=== PATIENT | male | born 1930 | race Caucasian/White ===

== ENCOUNTER 2017-01-06 12:08 | Emergency (ER) | payer OTHER, BC ==
--- NOTE | 2017-01-06 12:12 | EDPHY ---
HPI/HX/ROS/PE/MDM Narrative: CHIEF COMPLAINT: Fall, head trauma HPI: This patient is an anticoagulated 86-year-old male who presents to the Emergency Department via EMS with trauma to his right parietal scalp secondary to a fall while walking just prior to arrival. He reports that he felt acutely lightheaded prior to falling; he states that he often feels lightheaded but this was his first collapse. It is unclear if he lost consciousness. At time of arrival, he complains of a generalized headache. He denies any additional complaints. 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 REVIEW OF SYSTEMS: Aside from elements discussed in the HPI, a comprehensive 10-point review of systems was reviewed and is negative. PMH: 1. AV sequential pacemaker 2. CVA x2 (Eliquis) SOCIAL HISTORY: . Lives in [place]. PHYSICAL EXAM: General:Patient is alert, in no acute distress. ENT:Eyes are normal to inspection. ENT inspection normal. Neck: Normal inspection. Full range of motion. Respiratory:No respiratory distress. Breath sounds normal bilaterally. Cardiovascular: Regular rate and rhythm. Strong peripheral pulses. Normal cap refill. Abdomen:The abdomen is nontender to palpation. There are no peritoneal signs. There are normal bowel sounds. Back: Normal to inspection. No tenderness to palpation. Skin: Normal color. No rash. Warm and dry. Abrasion to the right hip and left forearm. Extremities: Normal appearance. Full range of motion. Neuro: Oriented x3. Normal motor function. Normal sensory function. ED Course: 1210: Took EMS report at bedside. 86-year-old male with history of a fib on Eliquis with cardiac pacemaker and two recent CVAs presents via EMS secondary to what appears to be a syncopal collapse with reported trauma to his right parietal scalp. On exam, his head is atraumatic. He has two small superficial abrasions to his extremities but full ROM to all extremities. There are no acute neurological deficits. He is mildly hypertensive but all other vital signs are normal. Will proceed with CT of the head, labs, and EKG. EKG, ordered and interpreted by myself, is normal. Please see [facility] system for official reading. Labs obtained and are unremarkable. 1310: CT of the head is non-acute per Dr. Mukherjee, radiology. I discussed results with the patient. He is feeling comfortable now and is able to ambulate around the department without recurrence of lightheadedness. However , he now complains of rib pain. Will proceed with x-ray of the chest. 1445: Chest x-ray reviewed and is negative for acute rib fracture. I discussed these results with the patient. He will be discharged home with instructions to follow-up with his neurologist and customary return precautions. - Data Points Imaging Results: Imaging Impressions Head CT 01/06/17 12:15 Impression: 1. No acute fracture, subdural hematoma, or acute intracranial hemorrhage. 2. 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 Findings discussed with emergency department physician, Gutierrez Dawson MD on January 06, 2017 at 1:12 p.m. Laboratory Results: Laboratory Results 01/06/17 12:15 01/06/17 12:15 01/06/17 01/06/17 01/06/17 12:15 12:15 12:15 WBC 7.49 10^3/uL 10^3/uL (3.80-9.50) RBC 4.23 10^6/uL L 10^6/uL (4.40-6.38) Hgb 13.5 g/dL L g/dL (13.7-17.5) Hct 41.1 % % (40.0-51.0) MCV 97.2 fL fL (81.5-99.8) MCH 31.9 pg pg (27.9-34.1) MCHC 32.8 g/dL g/dL (32.4-36.7) RDW 13.6 % % (11.5-15.2) Plt Count 177 10^3/uL 10^3/uL (150-400) MPV 11.1 fL fL (8.7-11.7) Neut % (Auto) 47.4 % % (39.3-74.2) Lymph % (Auto) 38.9 % % (15.0-45.0) [place] % (Auto) 10.1 % % (4.5-13.0) Eos % (Auto) 2.7 % % (0.6-7.6) Baso % (Auto) 0.5 % % (0.3-1.7) Nucleat RBC Rel Count 0.0 % % (0.0-0.2) Absolute Neuts (auto) 3.55 10^3/uL 10^3/uL (1.70-6.50) Absolute Lymphs (auto) 2.91 10^3/uL 10^3/uL (1.00-3.00) Absolute Monos (auto) 0.76 10^3/uL 10^3/uL (0.30-0.80) Absolute Eos (auto) 0.20 10^3/uL 10^3/uL (0.03-0.40) Absolute Basos (auto) 0.04 10^3/uL 10^3/uL (0.02-0.10) Absolute Nucleated RBC 0.00 10^3/uL 10^3/uL (0-0.01) Immature Gran % 0.4 % % (0.0-1.1) Immature Gran # 0.03 10^3/uL 10^3/uL (0.00-0.10) PT 13.5 SEC SEC (12.0-15.0) INR 1.04 (0.83-1.16) APTT 29.0 SEC SEC (23.0-38.0) Sodium 144 mEq/L mEq/L (134-144) Potassium 4.8 mEq/L mEq/L (3.5-5.2) Chloride 107 mEq/L mEq/L (97-110) Carbon Dioxide 24 mEq/l mEq/l (22-31) Anion Gap 13 mEq/L mEq/L (8-16) BUN 25 mg/dL H mg/dL (7-23) Creatinine 1.0 mg/dL mg/dL (0.7-1.3) Estimated GFR > 60 Glucose 98 mg/dL mg/dL (70-100) Calcium 9.4 mg/dL mg/dL (8.5-10.4) Troponin I < 0.012 ng/mL ng/mL (0-0.034) General Time Seen by Provider: 01/06/17 12:09 Initial Vital Signs: Initial Vital Signs Heart Rate 74 01/06/17 12:19 Respiratory Rate 16 01/06/17 12:19 Blood Pressure 156/92 H 01/06/17 12:19 O2 Sat (%) 94 01/06/17 12:19 O2 Delivery Mode Room Air Allergies/Adverse Reactions: No Known Drug Allergies Allergy (Verified 12/02/14 11:36) Home Medications: Medication Instructions Recorded Dutasteride [Avodart 0.5 MG (*)] 0.5 mg PO HS 01/25/12 Cetirizine [ZyrTEC 10 mg (*)] 10 mg PO DAILY 03/01/13 Fluticasone Nasal [Flonase Nasal 2 sprays EACHNARE DAILY 03/01/13 [place]] Cholecalciferol Vit D3 [Vitamin D3 1,000 units PO DAILY 11/23/14 (*)] Levothyroxine [Synthroid 125 mcg 125 mcg PO DAILY 11/23/14 (*)] Vitamin B Complex [B Complex] 1 tab PO DAILY 11/23/14 Apixaban [Eliquis] 5 mg PO BID #60 tab 11/24/14 Midodrine HCl [Proamatine/Midodrin] 2.5 mg PO TID@0800,1200,1600 #90 02/03/15 tab Acetaminophen/Diphenhydramine 2 tab PO HS 03/19/16 [Pain Relief Pm Caplet] Atorvastatin Calcium 80 mg PO HS 03/19/16 Docusate Sodium [Colace 100 MG (*)] 200 mg PO HS 03/19/16 Metoprolol Tartrate [Lopressor 25 12.5 mg PO BID #60 tab 03/23/16 mg (*)] Departure - Departure Disposition: Home, Routine, Self-Care Clinical Impression: Fall Qualifiers: Encounter type: initial encounter Qualified Code(s): W19.XXXA - Unspecified fall, initial encounter Rib contusion Qualifiers: Encounter type: initial encounter Laterality: unspecified laterality Qualified Code(s): S20.219A - Contusion of unspecified front wall of thorax, initial encounter Condition: Good Instructions: Fall Prevention for Older Adults (ED), Rib Contusion (ED) Additional Instructions: 1. Follow-up with your neurologist in the next 3-5 days for reevaluation. 2. Return to the Emergency Department if you experience severe headache, confusion, vision or speech changes, weakness, or for other serious concerns. Referrals: Marcello Hess DO [Doctor of Osteopathy] - As per Instructions Report Scribed for: Gutierrez Dawson Report Scribed by: Latonya Mccain Date of Report: 01/06/17 Time of Report: 12:12 Physician Review and Approval Statement: Portions of this note were transcribed by an ED scribe. I personally performed the history, physical exam, and medical decision making; and confirm the accuracy of the information in the transcribed note.
--- NOTE | 2017-01-06 12:20 | CPEKG ---
Heart Rate: 71 RR Interval: 845 P-R Interval: 218 QRSD Interval: 70 QT Interval: 400 QTC Interval: 435 P [place]: 255 QRS [place]: -23 T Wave [place]: 29 EKG Severity - ABNORMAL ECG - EKG Impression: ATRIAL-PACED COMPLEXES Electronically Signed By: Jose Antonio Costello 07-Jan-2017 08:12:17
[2017-01-06 12:22] VITALS: O2SAT 94
[2017-01-06 12:27] LABS: % IMMATURE GRANULYOCYTES 0.4 % (0.0-1.1); ABSOLUTE IMMATURE GRANULOCYTES 0.03 10^3/uL (0.00-0.10); ADD DIFF? NO; ADD MORPH? NO; ADD SCAN? NO; ATYPICAL LYMPHOCYTE FLAG 10 (0-99); FRAGMENT RBC FLAG 0 (0-99); HEMATOCRIT 41.1 % (40.0-51.0); HEMOGLOBIN 13.5 g/dL (13.7-17.5); LEFT SHIFT FLG 0 (0-99); LIPEMIA HEMOLYSIS FLAG 80 (0-99); MEAN CELL HEMOGLOBIN 31.9 pg (27.9-34.1); MEAN CELL HEMOGLOBIN CONCENTR. 32.8 g/dL (32.4-36.7); MEAN CELL VOLUME 97.2 fL (81.5-99.8); MEAN PLATELET VOLUME 11.1 fL (8.7-11.7); PLATELET CLUMPS FLAG 0 (0-99); PLATELET COUNT 177 10^3/uL (150-400); RED BLOOD CELL COUNT 4.23 10^6/uL (4.40-6.38); RED CELL DISTRIBUTION WIDTH 13.6 % (11.5-15.2)
[2017-01-06 12:36] LABS: INR 1.04 (0.83-1.16); PROTIME(PATIENT) 13.5 SEC (12.0-15.0)
[2017-01-06 12:42] LABS: ANION GAP 13 mEq/L (8-16); CALCIUM 9.4 mg/dL (8.5-10.4); CARBON DIOXIDE 24 mEq/l (22-31); CHLORIDE 107 mEq/L (97-110); GLOMERULAR FILTRATION RATE > 60; GLUCOSE 98 mg/dL (70-100); POTASSIUM 4.8 mEq/L (3.5-5.2); SODIUM 144 mEq/L (134-144)
[2017-01-06 12:53] LABS: TROPONIN I < 0.012 ng/mL (0-0.034)
[2017-01-06 14:58] VITALS: BP 158/94; PULSE 77; RESP 18
[2017-01-06 15:13] VITALS: TEMP 97.7
== END 2017-01-06 15:14 | disposition home or self-care (01) ==
LOC: EDUNIT#
DX: S20.219A Contusion of unspecified front wall of thorax, initial encounter (principal); Z79.01 Long term (current) use of anticoagulants; Z86.73 Personal history of transient ischemic attack (TIA), and cerebral infarction without residual deficits; Z95.0 Presence of cardiac pacemaker; W19.XXXA Unspecified fall, initial encounter; Y99.8 Other external cause status; Y93.01 Activity, walking, marching and hiking

== ENCOUNTER 2017-01-24 14:43 | Emergency (ER) | payer OTHER, BC ==
[2017-01-24 14:49] VITALS: RESP 16; TEMP 97.7
--- NOTE | 2017-01-24 15:39 | CPEKG ---
Heart Rate: 73 RR Interval: 822 P-R Interval: 192 QRSD Interval: 74 QT Interval: 408 QTC Interval: 450 P [place]: 0 QRS [place]: -17 T Wave [place]: 115 EKG Severity - ABNORMAL ECG - EKG Impression: ATRIAL-PACED COMPLEXES EKG Impression: PROBABLE LEFT ATRIAL ABNORMALITY EKG Impression: PROBABLE INFERIOR INFARCT, OLD EKG Impression: CONSIDER POSTERIOR WALL INVOLVEMENT EKG Impression: LATERAL LEADS ARE ALSO INVOLVED Electronically Signed By: Wilbert Ortega 24-Jan-2017 17:14:34
--- NOTE | 2017-01-24 15:50 | EDPHY ---
H & P Time Seen by Provider: 01/24/17 15:13 HPI/ROS: Chief complaint. Fall HPI. Patient is an 86-year-old male who was seen January 06 after a fall from a standing position. He is on Eliquis. He had a normal head CT. He was having some rib pain that had a negative chest x-ray. He tells me his rib pain is better. However he has had persistent and somewhat worsening right head pain and now low back pain. He did have some urinary urgency yesterday and when he needed to urinate he had to go immediately. He knows that this is much better today. He denies weakness to legs or altered sensation or numbness to his legs or thighs. It does hurt to walk. He has had previous back surgery. ROS Constitutional. no fever/chills, no weakness Eyes. no problems with vision ENT. no sore throat, no nasal drainage Cardiovascular. no chest pain Respiratory. no shortness of breath, no cough Abdominal. no abdominal pain, no nausea/vomiting, no diarrhea . no problems urinating MS. Low back pain Skin. no rash Lymph. no swollen glands Neuro. Right-sided headache Past Medical/Surgical History: Past medical history is significant for CVA, pacemaker, atrial fibrillation Social History: , nonsmoker, no alcohol Smoking Status: Former smoker Physical Exam: General Appearance: Alert well-developed male mild distress vital signs are stable Eyes: Pupils equal and round no pallor or injection. ENT, no hemotympanum or Phelan sign. No evidence for trauma to the head. Respiratory: There are no retractions, lungs are clear to auscultation. Cardiovascular: Regular rate and rhythm. Gastrointestinal: Abdomen is soft and nontender, no masses, bowel sounds normal. Neurological: Awake and alert, sensory and motor exams grossly normal. Skin: Warm and dry, no rashes. Musculoskeletal: Neck is supple nontender. Diffuse tenderness along the lumbar area not isolated to the spine. Extremities symmetrical, full range of motion. Psychiatric: Patient is oriented X 3, there is no agitation. Constitutional: Initial Vital Signs Temperature (C) 36.5 C 01/24/17 14:45 Heart Rate 71 01/24/17 14:45 Respiratory Rate 16 01/24/17 14:45 Blood Pressure 127/80 H 01/24/17 14:45 O2 Sat (%) 95 01/24/17 14:45 O2 Delivery Mode Room Air Allergies/Adverse Reactions: No Known Drug Allergies Allergy (Verified 12/02/14 11:36) Home Medications: Medication Instructions Recorded Dutasteride [Avodart 0.5 MG (*)] 0.5 mg PO HS 01/25/12 Cetirizine [ZyrTEC 10 mg (*)] 10 mg PO DAILY 03/01/13 Fluticasone Nasal [Flonase Nasal 2 sprays [place]ARE DAILY 03/01/13 [place]] Cholecalciferol Vit D3 [Vitamin D3 1,000 units PO DAILY 11/23/14 (*)] Levothyroxine [Synthroid 125 mcg 125 mcg PO DAILY 11/23/14 (*)] Vitamin B Complex [B Complex] 1 tab PO DAILY 11/23/14 Apixaban [Eliquis] 5 mg PO BID #60 tab 11/24/14 Midodrine HCl [Proamatine/Midodrin] 2.5 mg PO TID@0800,1200,1600 #90 02/03/15 tab Acetaminophen/Diphenhydramine 2 tab PO HS 03/19/16 [Pain Relief Pm Caplet] Atorvastatin Calcium 80 mg PO HS 03/19/16 Docusate Sodium [Colace 100 MG (*)] 200 mg PO HS 03/19/16 Metoprolol Tartrate [Lopressor 25 12.5 mg PO BID #60 tab 03/23/16 mg (*)] Medical Decision Making - Diagnostics EKG Interpretation: EKG interpreted by me shows paced rhythm with left axis deviation. QRS is normal there is no significant ST elevation or depression. No arrhythmia. The rate is 73 Imaging Results: Imaging Impressions Head CT 01/24/17 15:48 Impression: 1. 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 2. No acute hemorrhage, hydrocephalus, or mass effect. 3. Cerebrovascular atherosclerosis. 4. No definite acute infarct. 5. Moderate microvascular ischemic gliosis. 6. No sinusitis. 7. No epidural or subdural hematoma. Findings discussed with Emergency Department physician, Wilbert Ortega at 1610 hours, 01/24/2017. Final report concurs with initial preliminary interpretation. Noncontrast head CT shows atrophy but no evidence for hemorrhage or skull fracture Noncontrast CT of the lumbar spine reviewed by me and discussed with S1 knee shows moderate canal stenosis at L3 ED Course/Re-evaluation: Re-evaluation 4:45 p.m.--patient is stable. His , his daughter, and he and I discussed imaging and lab results. We discussed treatment plan including criteria for return importance of follow-up and further evaluation. They expressed understanding and agreement. Differential Diagnosis: I considered sequelae of trauma including intracranial bleeding and skull fracture which he does not have. I considered sequelae of his fall looking for compression fractures of the lumbar spine which she does not have. He does have moderate stenosis of the low back. Patient has a pacemaker and so MRI is not able to be performed currently. I considered urinary tract infection as well but he has a normal urinalysis. I have considered cauda equina syndrome. - Data Points Laboratory Results: 01/24/17 15:40 Urine Color YELLOW Urine Appearance HAZY Urine pH 5.0 (5.0-7.5) Ur Specific [place] 1.013 (1.002-1.030) Urine Protein NEGATIVE (NEGATIVE) Urine Ketones NEGATIVE (NEGATIVE) Urine Blood 1+ H (NEGATIVE) Urine Nitrate NEGATIVE (NEGATIVE) Urine Bilirubin NEGATIVE (NEGATIVE) Urine Urobilinogen NEGATIVE EU EU (0.2-1.0) Ur Leukocyte Esterase NEGATIVE (NEGATIVE) Urine RBC 3-5 /hpf H /hpf (0-3) Urine WBC 1-3 /hpf /hpf (0-3) Ur Epithelial Cells NONE SEEN /lpf /lpf (NONE-1+) Urine Mucus TRACE /lpf /lpf (NONE-1+) Urine Glucose NEGATIVE (NEGATIVE) Departure - Departure Disposition: Home, Routine, Self-Care Clinical Impression: Low back pain Qualifiers: Chronicity: acute Back pain laterality: bilateral Sciatica presence: without sciatica Qualified Code(s): M54.5 - Low back pain Condition: Good Instructions: Acute Low Back Pain (ED) Additional Instructions: Continue Tylenol using 650-1000 mg every 4-6 hours. Continue lidocaine patches. Ice if that feels helpful. Return for worsening symptoms including leg weakness, bowel or bladder symptoms. Follow up with Dr. Allen in the next 2-3 days. Referrals: Tye Allen MD [Primary Care Provider] - 2-3 days without fail
[2017-01-24 15:56] LABS: COLOR YELLOW; LEUKOCYTE ESTERASE,URINE NEGATIVE (NEGATIVE); NITRITE,URINE NEGATIVE (NEGATIVE)
[2017-01-24 16:00] LABS: MUCUS TRACE /lpf (NONE-1+)
[2017-01-24 17:10] VITALS: BP 121/75; PULSE 74; O2SAT 97
== END 2017-01-24 17:10 | disposition home or self-care (01) ==
DX: S39.92XA Unspecified injury of lower back, initial encounter (principal); Z79.01 Long term (current) use of anticoagulants; Z86.73 Personal history of transient ischemic attack (TIA), and cerebral infarction without residual deficits; Z87.891 Personal history of nicotine dependence; Z95.0 Presence of cardiac pacemaker; W19.XXXA Unspecified fall, initial encounter

== ENCOUNTER 2017-03-19 08:36 | Emergency (ER) | payer OTHER, BC ==
[2017-03-19 08:43] VITALS: RESP 16; O2SAT 97
--- NOTE | 2017-03-19 09:04 | EDPHY ---
HPI/HX/ROS/PE/MDM Narrative: CHIEF COMPLAINT: Left hip pain HPI: The patient is an 86 y/o male arriving with his family at the referral of his PCP complaining of worsening left hip pain over the last day. He has a history of a left replacement several years ago. He fell last year causing a left hip dislocation and despite successful relocation he has had difficulty with weakness and pain since that event. He's had multiple falls over the past year, most recently 5 weeks ago, but he denies any notable trauma from these falls. He normally uses a cane or walker to get around. His pain became much worse last night and this morning he has been unable to bear weight. He denies weakness, paresthesias, fever, or any other new symptoms. REVIEW OF SYSTEMS: Aside from elements discussed in the HPI, a comprehensive 10-point review of systems was reviewed and is negative. PMH: Left hip replacement SOCIAL HISTORY: Family at bedside. Retired court security officer. PCP: Dr. Allen PHYSICAL EXAM: General:Patient is alert, in no acute distress. ENT:Eyes are normal to inspection. ENT inspection normal. Neck: Normal inspection. Full range of motion. Respiratory:No respiratory distress. Breath sounds normal bilaterally. Cardiovascular: Regular rate and rhythm. Strong peripheral pulses. Normal cap refill. Abdomen:The abdomen is nontender to palpation. There are no peritoneal signs. Back: Normal to inspection. No tenderness to palpation. Skin: Normal color. No rash. Warm and dry. Extremities: Holding left hip in flexion and severe pain with ROM of left hip. Other extremities are normal in appearance with full range of motion. Neuro: Oriented x3. Normal motor function. Normal sensory function. ED Course: 1 tab PO Percocet administered. Left hip x-ray: no acute osseous abnormality. 0945: Consulted with Dr. Rao, radiologist, regarding further imaging. He recommends CT rather than MRI. CT pelvis and lumbar spine: negative for acute process per Dr. Rao. Reassessed and discussed findings with the patient. He is comfortable following up with his PCP this week for continued symptoms. Script for Percocet given. Return precautions given. MDM: This patient presents with left hip pain of unknown etiology, with no history of trauma. Per PCP request, we performed an extensive evaluation including CT- hip and CT-Lspine, with no clear etiology seen. Dr. Allen will follow the patient closely as an outpatient. - Data Points Imaging Results: Imaging Impressions Hip X-Ray 03/19/17 08:40 Impression: 1. No acute osseous abnormality seen about the pelvis with attention left hip replacement. 2. Moderate degenerative changes right hip and lower lumbar spine. Extremity CT 03/19/17 09:45 Impression: 1. Left total hip replacement in good position and alignment without evidence of fracture or dislocation. Findings discussed with Gutierrez Dawson MD at 10:28 hour, 03/19/2017. Lumbar Spine CT 03/19/17 09:45 Impression: 1. Relatively stable multilevel degenerative disk disease as detailed above more prominent along the left side of L3-L4 and on the right side of L4-L5. 2. No new compression fractures. Findings discussed with Gutierrez Dawson MD at 11:28 hour, 03/19/2017.. If symptoms worsen, additional imaging may be necessary. Imaging: Discussed imaging studies w/ biblical studies professor Radiologist, I viewed and interpreted images myself Medications Given: Lidocaine (Lidoderm 5%) 1 ea TD DAILY VARINDER Stop: 09/15/17 11:29 Last Admin: 03/19/17 11:26 Dose: 1 ea Discontinued Medications Oxycodone/Acetaminophen (Percocet 5/325) 1 tab PO EDNOW ONE Stop: 03/19/17 09:47 Last Admin: 03/19/17 09:51 Dose: 1 tab General Time Seen by Provider: 03/19/17 08:40 Initial Vital Signs: Initial Vital Signs Temperature (C) 36.8 C 03/19/17 08:40 Heart Rate 74 03/19/17 08:40 Respiratory Rate 16 03/19/17 08:40 Blood Pressure 118/81 H 03/19/17 08:40 O2 Sat (%) 97 03/19/17 08:40 O2 Delivery Mode Room Air Allergies/Adverse Reactions: No Known Drug Allergies Allergy (Verified 03/19/17 08:39) Home Medications: Medication Instructions Recorded Dutasteride [Avodart 0.5 MG (*)] 0.5 mg PO HS 01/25/12 Cetirizine [ZyrTEC 10 mg (*)] 10 mg PO DAILY 03/01/13 Fluticasone Nasal [Flonase Nasal 2 sprays [place] DAILY 03/01/13 [place]] Cholecalciferol Vit D3 [Vitamin D3 1,000 units PO DAILY 11/23/14 (*)] Levothyroxine [Synthroid 125 mcg 125 mcg PO DAILY 11/23/14 (*)] Vitamin B Complex [B Complex] 1 tab PO DAILY 11/23/14 Apixaban [Eliquis] 5 mg PO BID #60 tab 11/24/14 Midodrine HCl [Proamatine/Midodrin] 2.5 mg PO TID@0800,1200,1600 #90 02/03/15 tab Acetaminophen/Diphenhydramine 2 tab PO HS 03/19/16 [Pain Relief Pm Caplet] Atorvastatin Calcium 80 mg PO HS 03/19/16 Docusate Sodium [Colace 100 MG (*)] 200 mg PO HS 03/19/16 Metoprolol Tartrate [Lopressor 25 12.5 mg PO BID #60 tab 03/23/16 mg (*)] oxyCODONE/APAP 5/325 [Percocet 1 - 2 tab PO Q4H PRN #14 tab 03/19/17 5/325 (*)] Departure - Departure Disposition: Home, Routine, Self-Care Clinical Impression: Left hip pain Condition: Good Instructions: Hip Pain (ED) Additional Instructions: 1. Your pelvis and lumbar spine CTs today were negative for acute injuries. 2. Please follow up with your primary care provider and orthopedist for continued symptoms over the next few days. 3. Use Percocet as prescribed as needed for severe pain. This medication can make you sleepy. Do not drive while using it. Do not take additional Tylenol while using this medication. 4. Return to the ED for severe pain or other worsening of condition. Referrals: Tye Allen MD [Primary Care Provider] - As per Instructions Prescriptions: oxyCODONE/APAP 5/325 [Percocet 5/325 (*)] 1 - 2 tab PO Q4H PRN #14 tab PRN Reason: Pain, Severe Report Scribed for: Gutierrez Dawson Report Scribed by: Kristal Jaffe Date of Report: 03/19/17 Time of Report: 09:04 Physician Review and Approval Statement: Portions of this note were transcribed by an ED scribe. I personally performed the history, physical exam, and medical decision making; and confirm the accuracy of the information in the transcribed note.
[2017-03-19] MEDS ORDERED: OXYCODONE/APAP 5/325 TAB PO ONE (09:46)
[2017-03-19] MEDS ORDERED: LIDOCAINE 5% 1 EA PATCH TD SCH (11:30)
[2017-03-19 12:17] VITALS: BP 121/80; PULSE 70
[2017-03-19 12:18] VITALS: TEMP 97.9
--- NOTE | 2017-03-19 13:49 | ASMTCMCOM ---
CM Note CM Note Notes: Spoke with patient, his Steff and daughter Lauren (who lives in [place]) at bedside. Patient is ready to be discharged home. Patient has severe pain when ambulating and bearing weight on his left leg and hip. Patient and his Steff live independently in a private home at [facility] ([phone]). Patient normally uses a cane or walker to ambulate but will be needing a wheelchair upon discharge. Lauren is able to transport patient and Steff to a local loan closet (list provided) and sheepskin pickler a wheelchair before transporting them home. Steff will need assistance with transferring patient to a toilet or other chair or bed and asked about home help. We discussed the option of [facility] providing services. This CM called and spoke with XAVI Moran at [facility] in their home care services department and she says they would not be able to provide 24/7 care if that is what is needed, and since patient and Steff live in a private home they are unable to just be called and provide home care as needed. Luisa plans to meet patient and his at their home when they return from the ED. Patient and Steff provided with Luisa's number and recommended to call the front sight attacher when they get home. This CM also discussed other non-skilled homecare help services (lists provided) and they said they have used [facility] in the past. Lauren will also assist in arranging home help. It was discussed that patient and Steff may need to look at Assisted Living options since patient has had multiple falls in the past year, the most recent was 5 weeks ago. Plan is for them to followup with their PCP Tiffany and an orthopedist. Date Signed: 03/19/2017 01:48 PM Electronically Signed By:Elsi Coronel RN
[2017-03-19] MEDS ORDERED: PATCH REMOVAL 1 EA PATCH TD SCH (21:00)
== END 2017-03-19 12:18 | disposition home or self-care (01) ==
DX: M25.552 Pain in left hip (principal)

== ENCOUNTER → 2017-11-11 | Outpatient (CLI) | payer OTHER, BC ==
[~2017-11-11] MED LIST: IOPAMIDOL (ISOVUE-300) 100 ML BTL ONE
== END ==
LOC: CIMAGING 11:14
PROVIDERS: ATTEND Specialist
DX: R31.9 Hematuria, unspecified (principal)
CPT/HCPCS: 74178; Q9967

== ENCOUNTER → 2018-03-14 | Outpatient (CLI) | payer OTHER, BC | LOC: FIMAGING 14:27 | PROVIDERS: ATTEND Physician Assistant | DX: M51.36 Other intervertebral disc degeneration, lumbar region (principal) ==

== ENCOUNTER → 2018-03-25 | Outpatient (CLI) | payer OTHER, BC | LOC: CIMAGING 10:05 | PROVIDERS: ATTEND Physician Assistant | DX: R32 Unspecified urinary incontinence (principal) | CPT/HCPCS: 70450-PO ==

== ENCOUNTER → 2018-12-25 | Outpatient (CLI) | payer OTHER, BC | LOC: CIMAGING 11:26 ==

== ENCOUNTER → 2019-01-01 | Outpatient (CLI) | payer OTHER, BC | LOC: CIMAGING 10:16 ==